=== PATIENT | female | born 1955 ===

== ENCOUNTER 2023-03-09 19:41 | Emergency (ER) | payer OTHER ==
[~2023-03-09] VITALS: Ht 172.7 cm; Wt 95.0 kg
[2023-03-09 20:55] LABS: Basophils # (auto) 0.1 10 ^3/uL (0-0.2); Basophils % (auto) 0.7 % (0.0-2.0); Eosinophils # (auto) 0 10 ^3/uL (0-0.8); Eosinophils % (auto) 0.2 % (0.0-7.0); Hematocrit 44.4 % (36.0-46.0); Hemoglobin 14.1 g/dL (12.2-16.2); Lymphocytes # (auto) 1.3 10 ^3/uL (0.4-5.4); Lymphocytes % (auto) 8.3 % (10.0-50.0); Mean Corpuscular Hemoglobin 27.5 pg (28.0-32.0); Mean Corpuscular Hgb Conc. 31.7 g/dL (32.0-36.0); Mean Corpuscular Volume 86.8 fL (80.0-100.0); Monocytes # (auto) 0.8 10 ^3/uL (0-1.3); Monocytes % (auto) 5.3 % (0.0-12.0); Neutrophils % (auto) 85.5 % (37.0-80.0); Red Blood Cells 5.11 10^6/uL (4.0-5.20); Red Cell Distribution Width 14.6 % (11.8-14.3); White Blood Cell 15.1 10^3/uL (4.4-10.8)
[2023-03-09 21:04] LABS: Chloride 109 mmol/L (98-107); Potassium 3.7 mmol/L (3.5-5.1); Sodium 142 mmol/L (136-145)
[2023-03-09 21:05] LABS: Anion Gap 8 (5-15); Calcium 9.2 mg/dL (8.7-10.4); Carbon Dioxide 25 mmol/L (20-30)
[2023-03-09 21:10] LABS: BUN/Creatinine Ratio 15.8 (10.0-20.0); Blood Urea Nitrogen 23 mg/dL (9-23); Glucose 161 mg/dL (74-106); Lipase 31 U/L (12-53)
[2023-03-09 21:41] VITALS: PULSE 69; RESP 20; TEMP 98.2; O2SAT 96
[2023-03-10 00:03] LABS: Urine Bacteria FEW /hpf (None Seen); Urine Blood Negative /uL (Negative); Urine Clarity HAZY (Clear); Urine Color Yellow (Yellow); Urine Hyaline Cast MANY /lpf (0 - 2); Urine Mucus FEW (None Seen); Urine Protein, UAD 2+ (Negative); Urine Specific Gravity 1.029 (1.001-1.035); Urine WBC 274 /hpf (0 - 5); Urine pH 5.5 (5.0-8.0)
[2023-03-10 00:42] VITALS: RESP 18
[2023-03-10] MEDS ORDERED: levoFLOXacin 250 MG TAB PO ONE (01:30)
[2023-03-10] MEDS ORDERED: cefTRIAXone SOD 1,000 MG VL IM ONE (01:30)
[2023-03-10] MEDS ORDERED: LEVO750T8 PO (01:43)
[2023-03-10] MEDS ORDERED: ZOFR4T PO (01:43)
[2023-03-10] MEDS ORDERED: ACE3T PO (01:43)
[2023-03-10] MEDS ORDERED: cloNIDine HCL 0.1 MG TAB PO ONE (01:45)
[2023-03-10 02:30] VITALS: BP 141/67; PULSE 58; O2SAT 98
== END 2023-03-10 02:58 | disposition home or self-care (01) ==
LOC: EDBD 19:41 → ER 19:41
DX: N12 Tubulo-interstitial nephritis, not specified as acute or chronic (principal); I10 Essential (primary) hypertension
CPT/HCPCS: 36415; 74176; 80048; 81001; 83605; 83690; 84484; 85025; 93005; 96372; 99285; J0696